=== PATIENT | female | born 1960 | race Caucasian/White ===

== ENCOUNTER 2016-10-17 16:46 | Emergency (ER) | payer OTHER ==
[2016-10-17] MEDS ORDERED: OXYCODONE/APAP 5/325 TAB PO ONE (16:56)
--- NOTE | 2016-10-17 17:43 | DX ---
Right Wrist, 3 views History: Pain post trauma. Fall. Slipped on ice. Findings: There is an acute mildly comminuted Colles' fracture of the distal radius without significa nt dorsal angulation or displacement. The joint between the triquetrum and the pisiform looks widened on the lateral view. Other carpal alignment appears anatomic. The ulnar styloid process is intact. T here is a small corticated triangular ossicle at the base of the first metacarpal. There is an old he aled first metacarpal fracture deformity. Impression: 1. Colles' fracture of the distal radius 2. Wide triquetrum-pisiform joint. Is this bone dislocated? If clinically indicated noncontrast CT mi ght be useful.
--- NOTE | 2016-10-17 17:44 | EDPHY ---
H & P Stated Complaint: RIGHT ARM PAIN Time Seen by Provider: 10/17/16 17:02 HPI/ROS: CHIEF COMPLAINT: Right wrist pain and deformity HISTORY OF PRESENT ILLNESS: The patient presents to the ED with complaints of right wrist pain and deformity after she slipped on her icy deck. The patient fell onto a right outstretched hand. She did not strike her head or lose consciousness. She has no complaints of numbness, weakness, back pain, chest pain, shortness of breath or other concerns. She has moderate pain with associated soft tissue swelling in her right wrist. REVIEW OF SYSTEMS: A comprehensive 10 point review of systems is otherwise negative aside from elements mentioned in the history of present illness. Source: Patient Exam Limitations: No limitations - Personal History Current Tetanus/Diphtheria Vaccine: Unsure Current Tetanus Diphtheria and Acellular Pertussis (TDAP): Unsure - Medical/Surgical History Hx Asthma: No Hx Chronic Respiratory Disease: No Hx Diabetes: No Hx Cardiac Disease: No Hx Renal Disease: No Hx Cirrhosis: No Hx Alcoholism: No Hx HIV/AIDS: No Hx Splenectomy or Spleen Trauma: No Other PMH: TUBES IN EARS CURRENTLY, MENISCUS TEARS, FX FEMUR - Social History Smoking Status: Never smoked - Physical Exam Exam: General Appearance: Alert, no distress Head: Atraumatic Neck: Nontender, trachea midline Respiratory: No chest wall tender, subcutaneous air, lungs clear bilaterally Cardiovascular: Regular rate and rhythm Abdomen: Abdomen is soft and nontender, pelvis stable Skin: No lacerations, No abrasion Back: No midline T/L/S pain Extremities: Tenderness and soft tissue swelling noted to right distal radius Neurological: A&Ox3, normal motor function, normal sensory exam Constitutional: Initial Vital Signs Temperature (C) 36.7 C 10/17/16 16:49 Heart Rate 78 10/17/16 16:49 Respiratory Rate 18 10/17/16 16:49 Blood Pressure 111/71 10/17/16 16:49 O2 Sat (%) 94 10/17/16 16:49 O2 Delivery Mode Room Air Allergies/Adverse Reactions: No Known Allergies Allergy (Unverified 01/14/16 11:27) Home Medications: Medication Instructions Recorded Biotin 01/14/16 Multi-Vitamin Daily 01/14/16 Citalopram 10/17/16 oxyCODONE/APAP 5/325 [Percocet 1 - 2 tab PO Q6-8PRN PRN #20 tab 10/17/16 5/325 (RX)] Medical Decision Making - Diagnostics Imaging: Right wrist x-ray: Comminuted distal radius fracture noted, minimal deformity and angulation. Questionable carpal ligamentous injury. Procedures: Procedure: Splint placement. A ortho glass sugar-tong splint was applied to the right upper extremity by the tech. After application of the splint I returned and re-examined the patient. The splint was adequately immobilizing the joint and distal to the splint the patient's circulation and sensation was intact. Procedure: Hematoma block The patient did undergo a hematoma block with 10 cc of 1% Marcaine without complication. ED Course/Re-evaluation: The patient presents to the ED with a distal radius fracture. There is minimal displacement and is anatomically aligned. The patient has been placed into a sugar-tong splint. The patient will be referred to Orthopedic surgery for further evaluation. The patient will be given a prescription for Percocet this weekend. The patient will be referred to our hand specialist for further evaluation of her distal radius fracture and possible carpal injury. Differential Diagnosis: Differential diagnosis considered includes fracture, sprain, dislocation Departure - Departure Disposition: Home, Routine, Self-Care Clinical Impression: Distal radius fracture, right Qualifiers: Encounter type: initial encounter Fracture type: closed Fracture morphology: other extra-articular Qualifier Code: (S52.551A) Other extraarticular fracture of lower end of right radius, initial encounter for closed fracture Condition: Good Instructions: Wrist Fracture in Adults (ED) Additional Instructions: 1. Please wear splint until seen in follow-up by Orthopedic surgery on Thursday. Please contact the surgeon's office you have been referred to to schedule a follow-up visit. 2. Ice 20 minutes at a time 4-5 times a day over the next 3 days. 3. Percocet as needed for pain Referrals: Mic Guallpa MD [Medical Doctor] - As per Instructions Prescriptions: oxyCODONE/APAP 5/325 [Percocet 5/325 (RX)] 1 - 2 tab PO Q6-8PRN PRN #20 tab PRN Reason: for pain
[2016-10-17 18:24] VITALS: BP 130/85; PULSE 76; RESP 15; TEMP 98.8; O2SAT 93
== END 2016-10-17 18:24 | disposition home or self-care (01) ==
PROC: 3E0T3CZ (ICD-10-PCS; principal; 2016-10-17)
DX: S52.551A Other extraarticular fracture of lower end of right radius, initial encounter for closed fracture (principal); W00.0XXA Fall on same level due to ice and snow, initial encounter
CPT/HCPCS: A4565

== ENCOUNTER → 2017-01-08 | Outpatient (CLI) | payer OTHER | LOC: BMCIMAGING 09:34 | DX: Z12.31 Encounter for screening mammogram for malignant neoplasm of breast (principal); Z80.3 Family history of malignant neoplasm of breast | CPT/HCPCS: G0202 ==

== ENCOUNTER → 2017-05-11 | Outpatient (CLI) | payer OTHER | LOC: BMCIMAGING 15:15 | PROVIDERS: ATTEND Internal Medicine | DX: M81.0 Age-related osteoporosis without current pathological fracture (principal); S62.109A Fracture of unspecified carpal bone, unspecified wrist, initial encounter for closed fracture ==

== ENCOUNTER → 2017-05-25 | Outpatient (CLI) | payer OTHER | LOC: BMCIMAGING 12:16 | PROVIDERS: ATTEND Internal Medicine | DX: S22.080D Wedge compression fracture of T11-T12 vertebra, subsequent encounter for fracture with routine healing (principal); M54.5 Low back pain; M51.34 Other intervertebral disc degeneration, thoracic region ==

== ENCOUNTER → 2019-01-10 | Outpatient (CLI) | payer OTHER | LOC: BMCIMAGING 15:24 | PROVIDERS: ATTEND Podiatrist Foot & Ankle Surgery | DX: S92.512A Displaced fracture of proximal phalanx of left lesser toe(s), initial encounter for closed fracture (principal) ==